=== PATIENT | female | born 2005 | race Caucasian/White ===

== ENCOUNTER → 2024-11-16 12:51 | Outpatient (REF) | payer BC, SELFPAY | LOC: HWRAD 12:51 | PROVIDERS: ATTENDING PHYSICIAN Student in an Organized Health Care Education/Training Program; FAMILY PHYSICIAN Family Medicine | DX: N93.9 Abnormal uterine and vaginal bleeding, unspecified (principal); R53.83 Other fatigue; N92.6 Irregular menstruation, unspecified; R10.2 Pelvic and perineal pain; R11.0 Nausea | CPT/HCPCS: 76830; 76856 ==